=== PATIENT | male | born 1980 | race African-American/Black ===

== ENCOUNTER 2019-01-28 19:39 | Emergency (ER) | payer OTHER ==
[~2019-01-28] VITALS: Ht 175.3 cm; Wt 76.4 kg
[2019-01-28] MEDS ORDERED: IBUP40TA PO (19:50)
[2019-01-28 22:27] VITALS: BP 121/72
--- NOTE | 2019-01-29 06:09 | REP ---
Clinical: Lateral pain . Technique: AP, lateral, bilateral oblique views left ankle . Findings: No acute fracture or dislocation. Skeletal structures and joint spaces are intact and normal. Ankle mortise appears stable. No subcutaneous emphysema or radiodense foreign body. Impression: Normal left ankle radiograph series. Electronically Signed by Chilango Villalobos MD 01/29/2019 06:01 A
== END 2019-01-28 22:28 | disposition home or self-care (01) ==
LOC: M ED 19:39
DX: S93.402A Sprain of unspecified ligament of left ankle, initial encounter (principal); W01.0XXA Fall on same level from slipping, tripping and stumbling without subsequent striking against object, initial encounter; Y92.9 Unspecified place or not applicable